=== PATIENT | female | born 1955 | race Caucasian/White ===

== ENCOUNTER 2016-08-28 13:34 | Emergency (ER) | payer MEDICARE, MEDICAID ==
[~2016-08-28] VITALS: Ht 162.6 cm; Wt 77.1 kg
[2016-08-28 13:40] VITALS: BP 121/71
--- NOTE | 2016-08-28 14:03 | RAD ---
Indication injury, pain. AP oblique and lateral views of the right foot were obtained. There are advanced degenerative changes at the first metatarsal phalangeal joint. Milder degenerative change is seen at the second metatarsal phalangeal joint. No fracture or acute bony finding is seen. IMPRESSION: Chronic changes. No acute finding seen
[2016-08-28] MEDS ORDERED: NAPROXEN 500 MG TABLET PO STA (14:11)
[2016-08-28] MEDS ORDERED: HYDROcodone/APAP 5/325MG 1 TAB TABLET PO ONE (14:15)
[2016-08-28] MEDS ORDERED: HYDR-971 PO (14:36)
--- NOTE | 2016-08-28 14:36 | PHYS DOC ---
Past Medical History Past Medical History: CHF, Other Additional Past Medical Histor: RA, CYST ON LUNG Past Surgical History: Other Additional Past Surgical Histo: L THUMB JOINTS REMOVED Alcohol Use: None Drug Use: None Adult General Chief Complaint Chief Complaint: FOOT INJURY PAIN HPI HPI Patient is a 60 year old female with a history of CHF who presents with moderate pain on top of her right foot that began today after a metal plate that is used for closing street drains fell on her right foot. Patient is seated in a wheelchair with her right leg over the handle of the wheelchair Review of Systems Review of Systems Constitutional: Denies fever or chills [] Musculoskeletal: right foot pain Integument: Denies rash or skin lesions [] Neurologic: Denies headache, focal weakness or sensory changes [] Endocrine: Denies polyuria or polydipsia [] Current Medications Current Medications Current Medications Medications (Trade) Dose Ordered Sig/Nicko Start Time Stop Time Status Last Admin Dose Admin Acetaminophen/ Hydrocodone Bitart (Lortab 5/325) 2 tab 1X ONCE 08/28/16 14:15 08/28/16 14:16 DC Fentanyl Citrate (Fentanyl 2ml Vial) 50 mcg 1X ONCE 08/28/16 14:45 08/28/16 14:46 DC 08/28/16 14:32 50 MCG Naproxen (Naprosyn) 500 mg 1X STAT 08/28/16 14:11 08/28/16 14:16 DC Allergies Allergies Allergies Coded Allergies Type Severity Reaction Last Updated Verified morphine Allergy Intermediate HIVES 08/28/16 Yes Physical Exam Physical Exam Constitutional: Well developed, well nourished, no acute distress, non-toxic appearance. [] Skin: Warm, dry, no erythema, no rash. [] Back: No tenderness, no CVA tenderness. [] Extremities: Right foot with no obvious deformity. Bruising noted on bilateral The first second and third metatarsals. Tenderness on palpation of the right first second and third metatarsals. No pain or tenderness on the base of the fifth metatarsal of the navicular bone of the right foot. +2 right pedal pulse. Cap refill less than 2 seconds the right lower extremity. Sensation intact to the right foot. Neurologic: Alert and oriented X 3, normal motor function, normal sensory function, no focal deficits noted. [] Psychologic: Affect normal, judgement normal, mood normal. [] Current Patient Data Vital Signs Vital Signs Date Time Temp Pulse Resp B/P (MAP) Pulse Ox O2 Delivery O2 Flow Rate FiO2 08/28/16 14:32 16 Room Air 08/28/16 13:40 97.9 89 93 97.9 EKG EKG [] Radiology/Procedures Radiology/Procedures []PROCEDURE: FOOT RIGHT 3V Indication injury, pain. AP oblique and lateral views of the right foot were obtained. There are advanced degenerative changes at the first metatarsal phalangeal joint. Milder degenerative change is seen at the second metatarsal phalangeal joint. No fracture or acute bony finding is seen. IMPRESSION: Chronic changes. No acute finding seen DICTATED and SIGNED BY: NICOLÁS OVIEDO MD DATE: 08/28/16 1400 CC: MARCI KARIMI MD; TRISTAN CASTRO APRN ~ Course & Med Decision Making Course & Med Decision Making Pertinent Labs and Imaging studies reviewed. (See chart for details) Patient is in the ED with right foot pain after a metal plate fell on it. X- rays of the right foot interpreted by radiologist were negative for any acute findings but noted for arthritis. Patient was given results was not in the room. I ordered 2 hydrocodone tablets and naproxen, she refused requesting a shot. Fentanyl was ordered. came to the desk with a cup of water. He was standing behind me looking in the PACS machine stating the 's foot xray has broken bones, he is pointing randomly on the bones of the PACS machine. Informed patient the x-rays were read by a qualified radiology doctor and they negative for any acute findings, informed was noted for severe arthritis but not broken bones in the foot. continued to complain stating he can see the bones are broken and he would like the radiologist to come to his room to talk to them. Informed the radiologist will not come to the room to talk to them because the x-rays are negative and I can see them too and they are negative. He had a glass of water which he spilled on the floor. I had to ask him to go back to his room. wanted copies of the x-rays which I printed and gave to him. We also made a CD. We gave patient crutches and orthopedic shoe. I went to discharge patient with the help of Connie TALLEY, i reminded patient and her x-rays are negative, stated complaining stating we did not give patient anything for pain. Informed him patient was given fentanyl. He continued complaining stating fentanyl "is Fentanyl same as Demerol?" repeating this over and over. Informed him Demerol is no longer given in the emergency room as formulary for pain management. He continued to complain stating we gave patient nausea medicine instead of pain medicine. We tried educating him fentanyl is a pain medication with no success. Patient herself appears to understand fentanyl is a pain medicine. Informed patient she will follow-up with an orthopedic doctor which we provided plus she stated she has her own orthopedic doctor at , started stating we are sending them to orthopedic doctor because something is wrong. Informed him this normal procedure anyone with orthopedic complaints follows up with an orthopedic doctor just the same as any abdominal concern will follow up with payroll accounting manager or back pain will follow up with a neurosurgeon, PCP or pain clinic. continued to complain stating we sending patient to the orthopedic doctor because something is wrong with the patient's foot informed again there is nothing acutely wrong but the Orthopedic doctor can look at he foot and try to work with them to see if there is anything else going on other than arthritis. Informed him we take care of emergency cases to make sure there is nothing emergent if none you can follow-up with your own doctor or the provided orthopedic doctor. We finally had to ask them to go to the waiting room where they will be given the CD which is being copied for the foot xray. We gave them prescription for hydrocodone 12 tablets. They started complaining stating we did not give them enough. Informed them there is nothing broken hence we cannot give her any more pain medicine for home use they can f/u with orthopedic doctor for more medicines. Dragon Disclaimer Dragon Disclaimer This electronic medical record was generated, in whole or in part, using a voice recognition dictation system. Departure Departure Impression: Primary Impression: Contusion of right foot Additional Impression: Arthritis of foot, right Disposition: 01 HOME, SELF-CARE Condition: STABLE (patient identification: 1 on the hydrocodone. He) Referrals: MARCI KARIMI MD (PCP) TRINI BOONE II, MD Follow-up with the orthopedic doctor as soon as you can Patient Instructions: Foot Contusion, [id number] Additional Instructions: You have right foot contusion, your x-ray of the right foot was negative for any acute findings. You have a lot of arthritis in your foot. Follow-up with the provided orthopedic doctor or your own doctor as soon as you can Scripts Hydrocodone/Apap 5-325 (NORCO 5-325 TABLET) 1 Each Tablet 1-2 TAB PO Q4-6HRS, #12 TAB Prov: TRISTAN CASTRO APRN 08/28/16 Problem Qualifiers Primary Impression: Contusion of right foot Encounter type: initial encounter Qualified Codes: S90.31XA - Contusion of right foot, initial encounter TRISTAN CASTRO APRN Aug 28, 2016 14:36
[2016-08-28] MEDS ORDERED: fentaNYL PF VIAL 100 MCG/2 ML VIAL IM ONE (14:45)
== END 2016-08-28 14:54 | disposition home or self-care (01) ==
LOC: ER 13:34
DX: S90.31XA Contusion of right foot, initial encounter (principal); M19.071 Primary osteoarthritis, right ankle and foot; I50.9 Heart failure, unspecified; M06.9 Rheumatoid arthritis, unspecified; Z88.5 Allergy status to narcotic agent; W22.8XXA Striking against or struck by other objects, initial encounter; Y93.89 Activity, other specified; Y92.89 Other specified places as the place of occurrence of the external cause; Y99.8 Other external cause status
CPT/HCPCS: 73630; 96372; 99284; J3010

== ENCOUNTER 2017-10-13 21:11 | Emergency (ER) | payer MEDICARE, MEDICAID ==
[~2017-10-13] VITALS: Ht 162.6 cm; Wt 79.4 kg
[~2017-10-13 21:11] MED LIST: HYDR-971 PO
[2017-10-13 21:21] VITALS: BP 174/81
[2017-10-13] MEDS ORDERED: HYDR-971 PO (21:59)
--- NOTE | 2017-10-13 22:00 | PHYS DOC ---
Past Medical History Past Medical History: CHF, Other Additional Past Medical Histor: RA, CYST ON LUNG Past Surgical History: Other Additional Past Surgical Histo: L THUMB JOINTS REMOVED Alcohol Use: None Drug Use: None Adult General Chief Complaint Chief Complaint: SHOULDER INJURY [facility] HPI Patient is a 61 year old F who presents with right shoulder pain for the last week. Patient reports she tripped and fell into a door jamb 1 week ago. She continues to have pain that is not relieved by her tramadol. No numbness or tingling. Review of Systems Review of Systems Respiratory: Denies cough or shortness of breath [] Cardiovascular: No additional information not addressed in HPI [] Musculoskeletal: Denies back pain. reports right shoulder pain [] Integument: Denies rash or skin lesions [] Neurologic: Denies focal weakness or sensory changes [] All other systems were reviewed and found to be within normal limits, except as documented in this note. Current Medications Current Medications Current Medications Medications (Trade) Dose Ordered Sig/Nicko Start Time Stop Time Status Last Admin Dose Admin Acetaminophen/ Hydrocodone Bitart (Lortab 10/325) 1 tab 1X ONCE 10/13/17 22:30 10/13/17 22:31 Allergies Allergies Allergies Coded Allergies Type Severity Reaction Last Updated Verified morphine Allergy Intermediate HIVES 08/28/16 Yes Physical Exam Physical Exam Constitutional: Well developed, well nourished, no acute distress, non-toxic appearance. [] HENT: Normocephalic, atraumatic Eyes: PERRLA, EOMI, conjunctiva normal, no discharge. [] Neck: Normal range of motion, no tenderness, supple, no stridor. [] Cardiovascular:Heart rate regular rhythm, no murmur [] Lungs & Thorax: Bilateral breath sounds clear to auscultation [] Skin: Warm, dry, no erythema, no rash. [] Extremities: Right shoulder tenderness, limited ROM d/t pain [] Neurologic: Alert and oriented X 3, normal motor function, normal sensory function, no focal deficits noted. [] Psychologic: Affect normal, judgement normal, mood normal. [] Current Patient Data Vital Signs Vital Signs Date Time Temp Pulse Resp B/P (MAP) Pulse Ox O2 Delivery O2 Flow Rate FiO2 10/13/17 21:21 98.1 80 18 174/81 (112) 95 Room Air 98.1 EKG EKG [] Radiology/Procedures Radiology/Procedures XR right shoulder -- no acute findings[] Course & Med Decision Making Course & Med Decision Making Pertinent Labs and Imaging studies reviewed. (See chart for details) Plan: norco rx, sling, ice, f/u with PCP, return precautions reviewed Lois Disclaimer Dragon Disclaimer This electronic medical record was generated, in whole or in part, using a voice recognition dictation system. Departure Departure Impression: Primary Impression: Left shoulder pain Disposition: HOME, SELF-CARE Condition: GOOD Referrals: MARCI KARIMI MD (PCP) Patient Instructions: Shoulder Exercises, Generic, SportsMed, Shoulder Pain Scripts Hydrocodone/Apap 5-325 (NORCO 5-325 TABLET) 1 Each Tablet 1-2 TAB PO Q4-6HRS, #20 TAB Prov: BRYON QUESADA PLANETARIUM TECHNICIAN 10/13/17 Problem Qualifiers Primary Impression: Left shoulder pain Chronicity: acute Qualified Codes: M25.512 - Pain in left shoulder BRYON QUESADA PLANETARIUM TECHNICIAN Oct 13, 2017 21:59
[2017-10-13] MEDS ORDERED: HYDROcodone/APAP 10/325 1 TAB TABLET PO ONE (22:30)
--- NOTE | 2017-10-14 09:42 | RAD ---
Right shoulder, 3 views, 10/13/2017: HISTORY: Shoulder pain No fracture or dislocation is identified. There are mild arthritic changes at the glenohumeral and acromioclavicular articulations. There are sclerotic and cystic changes at rotator cuff insertion sites on the greater tuberosity. Moderate degenerative changes are also noted in the cervical spine. IMPRESSION: 1. Degenerative change. 2. No acute bony abnormality is detected. Electronically signed by: Scot Bradley MD (10/14/2017 9:38 AM) [facility]
== END 2017-10-13 22:33 | disposition home or self-care (01) ==
LOC: ER 21:11
DX: M25.511 Pain in right shoulder (principal); I50.9 Heart failure, unspecified; Z88.5 Allergy status to narcotic agent
CPT/HCPCS: 73030; 99284

== ENCOUNTER 2017-11-12 10:35 | Emergency (ER) | payer MEDICARE, MEDICAID ==
[~2017-11-12] VITALS: Ht 162.6 cm; Wt 77.6 kg
[2017-11-12 11:00] VITALS: BP 150/69
[2017-11-12] MEDS ORDERED: OXYMETAZOLINE 0.05% NASAL SPRAY 30ML BOTTLE. NS ONE (11:00)
[2017-11-12] MEDS ORDERED: LABETALOL 20 MG/4 ML DISP.SYRIN. IVP ONE (11:00)
--- NOTE | 2017-11-12 11:25 | PHYS DOC ---
Past Medical History Past Medical History: CHF, Other Additional Past Medical Histor: RA, CYST ON LUNG Past Surgical History: Other Additional Past Surgical Histo: L THUMB JOINTS REMOVED Alcohol Use: None Drug Use: None Adult General Chief Complaint Chief Complaint: HYPERTENSION HPI HPI Patient is a 61 year old female who presents with complaining of epistaxis. Patient stated since this morning she had nosebleed from both sides of her nose that gradually improved. Patient denies injury and history of nasal bleeding recently. Patient states she was admitted [facility] recently for pleurisy for 2 weeks and treated with Lovenox and discharged 3 days ago and currently doesn' t take any blood thinner medication. Patient states she did not take her blood pressure medication this morning. Review of Systems Review of Systems Constitutional: Denies fever or chills [] Eyes: Denies change in visual acuity, redness, or eye pain [] HENT: Denies nasal congestion or sore throat [] Respiratory: Denies cough or shortness of breath [] Cardiovascular: No additional information not addressed in HPI [] GI: Denies abdominal pain, nausea, vomiting, bloody stools or diarrhea [] : Denies dysuria or hematuria [] Musculoskeletal: Denies back pain or joint pain [] Integument: Denies rash or skin lesions [] Neurologic: Denies headache, focal weakness or sensory changes [] Endocrine: Denies polyuria or polydipsia [] All other systems were reviewed and found to be within normal limits, except as documented in this note. Current Medications Current Medications Current Medications Medications (Trade) Dose Ordered Sig/Nicko Start Time Stop Time Status Last Admin Dose Admin Labetalol HCl (Normodyne Iv Push) 10 mg 1X ONCE 11/12/17 11:00 11/12/17 11:01 DC Oxymetazoline HCl (Afrin) 2 spray 1X ONCE 11/12/17 11:00 11/12/17 11:01 DC 11/12/17 11:20 2 SPRAY Allergies Allergies Allergies Coded Allergies Type Severity Reaction Last Updated Verified morphine Allergy Intermediate HIVES 08/28/16 Yes Physical Exam Physical Exam Constitutional: Well developed, well nourished, no acute distress, non-toxic appearance. [] HENT: Normocephalic, atraumatic, bilateral external ears normal, oropharynx moist, no oral exudates, no active nasal bleeding after applying local pressure , dried blood in bilateral nose[] Eyes: PERRLA, EOMI, conjunctiva normal, no discharge. [] Neck: Normal range of motion, no tenderness, supple, no stridor. [] Cardiovascular: Tachycardia, no murmur [] Lungs & Thorax: Bilateral breath sounds clear to auscultation [] Skin: Warm, dry, no erythema, no rash. [] Back: No tenderness, no CVA tenderness. [] Extremities: No tenderness, no cyanosis, no clubbing, ROM intact, no edema. [] Neurologic: Alert and oriented X 3, normal motor function, normal sensory function, no focal deficits noted. [] Psychologic: Affect normal, judgement normal, mood normal. [] Current Patient Data Vital Signs Vital Signs Date Time Temp Pulse Resp B/P (MAP) Pulse Ox O2 Delivery O2 Flow Rate FiO2 11/12/17 11:00 120 150/69 11/12/17 10:43 98.0 18 95 Room Air 98.0 EKG EKG EKG interpreted by me. EKG at 1057 showed sinus tachycardia at rate of 134, no acute ST or T-wave abnormalities, poor R-wave progress in anteroseptal leads Radiology/Procedures Radiology/Procedures [] Course & Med Decision Making Course & Med Decision Making Evaluation of patient in ER showed 61-year-old female patient presented to ER because of epistaxis. Bleeding was stopped at arrival to ER. Patient had blood pressure of more than 200 and heart rate of 130s at arrival to ER. Blood pressure gradually decreased to 150s. Patient refused to have any blood tests and states she was at hospital recently and doesn't want to have more needle stick and blood tests. After stopping nasal bleeding she decided to leave and follow up with her primary care physician. Dragon Disclaimer Dragon Disclaimer This electronic medical record was generated, in whole or in part, using a voice recognition dictation system. Departure Departure Impression: Primary Impression: Epistaxis Additional Impressions: Uncontrolled hypertension Tachycardia Noncompliance by refusing service Disposition: HOME, SELF-CARE (at 1124) Condition: IMPROVED Referrals: MARCI KARIMI MD (PCP) Patient Instructions: Hypertension, Nonspecific Tachycardia, Nosebleed Additional Instructions: Continue home blood pressure medication Follow-up with your primary care physician in 2-3 days Return to ER if not getting better Problem Qualifiers PETER PARR MD Nov 12, 2017 11:25
--- NOTE | 2017-11-12 15:00 | EKG ---
[facility] [address] [place] [address] Test Date: 2017-11-12 Test Time: 10:57:46 Pat Name: THOMAS RASHID Department: Room: Gender: F Senior Production Manager: : [id number] Requested By: PETER PARR Order Number: [id number] Reading MD: Nba Chung MD Measurements Intervals [place] Rate: 134 P: -167 ME: 150 QRS: 12 QRSD: 80 T: 57 QT: 290 QTc: 433 Interpretive Statements SINUS TACHYCARDIA pvc Electronically Signed On 11-13-2017 8:08:46 CDT by Nba Chung MD
== END 2017-11-12 11:43 | disposition home or self-care (01) ==
LOC: ER 10:35
DX: R04.0 Epistaxis (principal); I11.0 Hypertensive heart disease with heart failure; I50.9 Heart failure, unspecified; R00.0 Tachycardia, unspecified; Z91.19 Patient's noncompliance with other medical treatment and regimen; Z88.5 Allergy status to narcotic agent
CPT/HCPCS: 93005; 99283-25